=== PATIENT | male | born 1975 | race Two or more races ===

== ENCOUNTER 2016-12-30 15:35 | Emergency (ER) | payer SELFPAY ==
[2016-12-30] MEDS ORDERED: OXYCODONE HCL 5 MG TABLET ONE (16:08)
[2016-12-30] MEDS ORDERED: ACETAMINOPHEN 500 MG TABLET ONE (16:08)
[2016-12-30] MEDS ORDERED: KETOROLAC TROMETHAMINE 30 MG/ML 1 ML VIAL ONE (16:08)
== END 2016-12-30 17:10 | disposition home or self-care (01) ==
LOC: ED 15:35
DX: M54.5 Low back pain (principal); M79.662 Pain in left lower leg; M79.661 Pain in right lower leg; W10.9XXA Fall (on) (from) unspecified stairs and steps, initial encounter; Y92.9 Unspecified place or not applicable